=== PATIENT | male | born 1960 ===

== ENCOUNTER 2018-02-19 19:15 | Inpatient (IN) | payer OTHER ==
[2018-02-19] MEDS ORDERED: Sodium Chloride 0.9% 1,000 ML IV ONE (19:38)
[2018-02-19] MEDS ORDERED: cefTRIAXone IV 1 gm in Dextros 50 ML IVPB ONE (20:30)
--- NOTE | 2018-02-19 20:34 | C.PDOC ---
History Of Present Illness 58 y/o male presents to the ED with 2 weeks of dysuria and urinary frequency. Also reports fevers at home. Patient was seen by PMD Dr. Venegas 2 days ago, and started on Cipro and Flomax without improvmeent. Today he noticed blood in his urine, prompting him to come in for further evaluation. Otherwise he denies any abdominal pain, nausea, vomiting, diarrhea, back pain, or flank pain. Time Seen by Provider: 02/19/18 19:32 Chief Complaint (Nursing): Male Genitourinary History Per: Patient History/Exam Limitations: no limitations Onset/Duration Of Symptoms: Days Current Symptoms Are (Timing): Still Present Past Medical History Reviewed: Historical Data, Nursing Documentation, Vital Signs Vital Signs: Last Vital Signs Temp 100.1 F H 02/19/18 19:34 Pulse 119 H 02/19/18 19:34 Resp 20 02/19/18 19:34 BP 138/90 02/19/18 19:34 Pulse Ox 99 02/19/18 20:34 Other Surgeries: Left leg surgery Family History: States: No Known Family Hx - Social History Hx Alcohol Use: No Hx Substance Use: No - Immunization History Hx Tetanus Toxoid Vaccination: No Hx Influenza Vaccination: No Hx Pneumococcal Vaccination: No Review Of Systems Except As Marked, All Systems Reviewed And Found Negative. Constitutional: Positive for: Fever Genitourinary: Positive for: Dysuria, Frequency, Hematuria Physical Exam - Physical Exam Appears: Non-toxic, No Acute Distress Skin: Normal Color, Warm, Dry Head: Atraumatic, Normacephalic Eye(s): bilateral: Normal Inspection, PERRL, EOMI Nose: Normal Oral Mucosa: Moist Neck: Normal ROM, Supple Chest: Symmetrical Cardiovascular: Rhythm Regular, No Murmur Respiratory: Normal Breath Sounds, No Rales, No Rhonchi, No Wheezing Gastrointestinal/Abdominal: Soft, No Tenderness, No Guarding, No Rebound Back: Normal Inspection, No CVA Tenderness, No Vertebral Tenderness Extremity: Bilateral: Atraumatic, Normal Color And Temperature, Normal ROM Pulses: Left Dorsalis Pedis: Normal, Right Dorsalis Pedis: Normal Neurological/Psych: Oriented x3, Normal Speech, Other (No focal deficits) ED Course And Treatment - Laboratory Results Result Diagrams: 02/19/18 21:00 02/19/18 21:00 O2 Sat by Pulse Oximetry: 99 (RA) Pulse Ox Interpretation: Normal Medical Decision Making Medical Decision Making: Initial Impression: Complex UTI Initial Plan: --CMP --CBC --Lipase --UA --Urine culture --Blood culture --Chest x-ray --IV fluids --IV Rocephin --Tylenol 975 mg PO Disposition Discussed With DrArtem: Markos Venegas Doctor Will See Patient In The: Hospital Counseled Patient/Family Regarding: Studies Performed, Diagnosis - Disposition Disposition: HOSPITALIZED Disposition Time: 21:54 Condition: FAIR Forms: [facility] (Hebrew) - Clinical Impression Clinical Impression: Urinary tract infection with fever - Scribe Statement The provider has reviewed the documentation as recorded by the Kaylan Arthur Provider Attestation: All medical record entries made by the Kaylan were at my direction and personally dictated by me. I have reviewed the chart and agree that the record accurately reflects my personal performance of the history, physical exam, medical decision making, and the department course for this patient. I have also personally directed, reviewed, and agree with the discharge instructions and disposition.
[2018-02-19 21:03] LABS: BASO % 0.1 % (0.0-2.0); EOS % 0.1 % (0.0-4.0); HEMOGLOBIN 13.4 g/dL (12.0-18.0); LYMPH # 0.9 K/uL (1.0-4.3); LYMPH % 7.4 % (20.0-40.0); MEAN CELL VOLUME 80.5 fL (80.0-94.0); MEAN CORPUSCULAR HEMOGLOBIN 27.8 pg (27.0-31.0); MEAN CORPUSCULAR HGB CONC 34.6 g/dL (33.0-37.0); MEAN PLATELET VOLUME 8.5 fL (7.2-11.7); MONO # 0.8 K/uL (0.0-0.8); MONO % 6.5 % (0.0-10.0); NEUT # 10.6 K/uL (1.8-7.0); NEUT % 85.9 % (50.0-75.0); PLATELET COUNT 135 K/uL (130-400); RBC 4.82 Mil/uL (4.40-5.90); RED CELL DISTRIBUTION WIDTH 13.6 % (11.5-14.5); WHITE BLOOD COUNT 12.3 K/uL (4.8-10.8)
[2018-02-19 21:21] LABS: ALB/GLOB RATIO 1.1 (1.0-2.1); CALCIUM 8.9 mg/dl (8.6-10.4); GFR AFRICAN-AMERICAN > 60; GFR NON-AFRICAN AMERICAN > 60; LIPASE 23 U/L (23-300)
[2018-02-19 21:22] LABS: ALT/SGPT 16 U/L (21-72); AST/SGOT 25 U/L (17-59); BLOOD UREA NITROGEN 15 mg/dL (9-20)
[2018-02-19 21:28] LABS: SQUAMOUS EPITHIAL 1 /hpf (0-5); URINE BILIRUBIN NEGATIVE (NEGATIVE); URINE BLOOD 2+ (NEGATIVE); URINE CLARITY Hazy (Clear); URINE COLOR Yellow (YELLOW); URINE GLUCOSE (UA) NORMAL (Normal); URINE LEUKOCYTE ESTERASE 1+ Leu/uL (Negative); URINE PROTEIN 1+ mg/dL (NEGATIVE); URINE UROBILINOGEN NORMAL mg/dL (0.2-1.0)
[2018-02-19 21:34] LABS: LARGE PLATELETS PRESENT; LYMPHOCYTE 9 % (20-40); MONOCYTE 4 % (0-10); NEUTROPHIL 87 % (50-75); PLATELET ESTIMATE SLIGHTLY DECREASED (NORMAL); TOTAL CELLS COUNTED 100
--- NOTE | 2018-02-19 23:21 | CT ---
EXAM: CT Abdomen and Pelvis Without Intravenous Contrast EXAM DATE/TIME: 02/19/2018 9:53 PM CLINICAL HISTORY: 58 years old, male; Signs and symptoms; Fever and other: Hematuria/burning urination; Additional info: Abd. Pain TECHNIQUE: Axial computed tomography images of the abdomen and pelvis without intravenous contrast. All CT scans at this facility use one or more dose reduction techniques, viz.: automated exposure control; ma/kV adjustment per patient size (including targeted exams where dose is matched to indication; i.e. head); or iterative reconstruction technique. Coronal and sagittal reformatted images were created and reviewed. COMPARISON: No relevant prior studies available. FINDINGS: There are 2 round hypoattenuating hepatic lesions the larger measuring 3 cm in diameter probable cysts. The gallbladder, spleen, and pancreas appear grossly normal on this non-contrast study. There is bilateral perinephric stranding. No hydronephrosis. No obstructing calculi. The bowel appears grossly normal. A normal appendix is identified axial images 118 through 136. The prostate is enlarged and contains calcification. IMPRESSION: Enlarged prostate. Recommend correlation with PSA level.
[2018-02-20] MEDS ORDERED: Pneumococcal 23-Valent Vaccine IM ONE (01:34)
[2018-02-20] MEDS ORDERED: Oxycodone/Acetaminophen 5/325 mg Tab PO ONE (04:56)
--- NOTE | 2018-02-20 08:16 | RAD ---
Chest x-ray two views History: Chest pain. Comparison: None available. Findings: Biapical pleural thickening with upper lobe granulomatous changes. Patchy increased markings at the left lung base. Mild venous congestion. Tortuous aorta. Mild cardiomegaly. Degenerative changes in the spine with paravertebral osteophytes. Impression Biapical pleural thickening with upper lobe granulomatous changes. Patchy increased markings at the left lung base. Mild venous congestion. Tortuous aorta. Mild cardiomegaly.
--- NOTE | 2018-02-20 11:22 | CP.PCM.HP ---
History of Present Illness - History of Present Illness History of Present Illness: CC: fever HPI: 58 y/o male c/o urinaty discomfort, fever and blood in urine few days. Took Cipro no improvement. Present on Admission - Present on Admission Any Indicators Present on Admission: Yes History of DVT/PE: No History of Uncontrolled Diabetes: No Urinary Catheter: No Decubitus Ulcer Present: No Review of Systems - Review of Systems All systems: reviewed and no additional remarkable complaints except (fever, chronic leg pain, lumbar stenosis, weakness) Past Patient History - Past Medical History & Family History Past Medical History?: Yes - Past Social History Smoking Status: Former Smoker - CARDIAC Hx Cardiac Disorders: Yes Hx Hypertension: Yes - PULMONARY Hx Respiratory Disorders: No - NEUROLOGICAL Hx Neurological Disorder: No - HEENT Hx HEENT Problems: Yes Other/Comment: wears glasses to see far away uses glasses - ENDOCRINE/METABOLIC Hx Endocrine Disorders: No - HEMATOLOGICAL/ONCOLOGICAL Hx Blood Disorders: No - INTEGUMENTARY Hx Dermatological Problems: No - MUSCULOSKELETAL/RHEUMATOLOGICAL Hx Musculoskeletal Disorders: No Hx Falls: Yes - GASTROINTESTINAL Hx Gastrointestinal Disorders: No - GENITOURINARY/GYNECOLOGICAL Hx Genitourinary Disorders: Yes Hx Urinary Tract Infection: Yes Other/Comment: 2003 had tube for urine 09/20/2 months - PSYCHIATRIC Hx Psychophysiologic Disorder: No Hx Substance Use: No - SURGICAL HISTORY Hx Surgeries: Yes Hx Orthopedic Surgery: Yes (left lower leg screws) - ANESTHESIA Hx Anesthesia: Yes Hx Anesthesia Reactions: No Hx Malignant Hyperthermia: No Has any member of the family had a problem w/ anesthesia?: No Meds Allergies/Adverse Reactions: Allergies Allergy/AdvReac Type Severity Reaction Status Date / Time No Known Allergies Allergy Unverified 02/19/18 19:34 Physical Exam - Constitutional Appears: Non-toxic - Head Exam Head Exam: NORMAL INSPECTION - Eye Exam Eye Exam: Normal appearance - ENT Exam ENT Exam: Normal Exam - Neck Exam Neck exam: Positive for: Normal Inspection - Respiratory Exam Respiratory Exam: NORMAL BREATHING PATTERN - Cardiovascular Exam Cardiovascular Exam: REGULAR RHYTHM - GI/Abdominal Exam GI & Abdominal Exam: Normal Bowel Sounds - Rectal Exam Rectal Exam: Deferred - Exam External exam: NORMAL EXTERNAL EXAM - Back Exam Back exam: CVA tenderness (R) - Neurological Exam Neurological exam: Alert - Skin Skin Exam: Normal Color Results - Vital Signs Recent Vital Signs: Last Vital Signs Temp 98.4 F 02/20/18 08:54 Pulse 89 02/20/18 08:54 Resp 20 02/20/18 08:54 BP 127/85 02/20/18 08:54 Pulse Ox 96 02/20/18 08:54 - Labs Result Diagrams: 02/19/18 21:00 02/19/18 21:00 Labs: Laboratory Results - last 24 hr 02/19/18 02/19/18 02/19/18 21:00 21:00 21:12 WBC 12.3 H RBC 4.82 Hgb 13.4 Hct 38.8 MCV 80.5 MCH 27.8 MCHC 34.6 RDW 13.6 Plt Count 135 MPV 8.5 Neut % (Auto) 85.9 H Lymph % (Auto) 7.4 L [place] % (Auto) 6.5 Eos % (Auto) 0.1 Baso % (Auto) 0.1 Neut # (Auto) 10.6 H Lymph # (Auto) 0.9 L [place] # (Auto) 0.8 Eos # (Auto) 0.0 Baso # (Auto) 0.0 Neutrophils % (Manual) 87 H Lymphocytes % (Manual) 9 L Monocytes % (Manual) 4 Platelet Estimate Slightly decreased L Large Platelets Present Sodium 141 Potassium 3.8 Chloride 103 Carbon Dioxide 24 Anion Gap 18 BUN 15 Creatinine 0.9 Est GFR ( Amer) > 60 Est GFR (Non-Af Amer) > 60 Random Glucose 119 H Calcium 8.9 Total Bilirubin 1.0 AST 25 ALT 16 L Alkaline Phosphatase 74 Total Protein 7.7 Albumin 4.0 Globulin 3.7 Albumin/Globulin Ratio 1.1 Lipase 23 Urine Color Yellow Urine Clarity Hazy Urine pH 6.0 Ur Specific [place] 1.018 Urine Protein 1+ H Urine Glucose (UA) Normal Urine Ketones Negative Urine Blood 2+ H Urine Nitrate Negative Urine Bilirubin Negative Urine Urobilinogen Normal Ur Leukocyte Esterase 1+ H Urine WBC (Auto) 20 H Urine RBC (Auto) 95 H Ur Squamous Epith Cells 1 Assessment & Plan (1) Urinary tract infection with fever Status: Acute (2) Lumbar radiculopathy Status: Chronic (3) HTN (hypertension) Status: Chronic - Assessment and Plan (Free Text) Assessment: A/p: IV antibiotic. Urology consult - Date & Time Date: 02/20/18 Time: 11:26
[2018-02-20] MEDS ORDERED: cefTRIAXone 2 GM in Sodium Chloride 0.9% 100 ML IVPB SCH (14:00)
--- NOTE | 2018-02-20 16:40 | CP.PCM.CON ---
History of Present Illness - History of Present Illness History of Present Illness: 58 y/o male presents to the ED with 2 weeks of dysuria and urinary frequency. Also reports fevers at home. Patient was seen by PMD Dr. Venegas 2 days ago, and started on Cipro and Flomax without improvmeent. Today he noticed blood in his urine, prompting him to come in for further evaluation. Otherwise he denies any abdominal pain, nausea, vomiting, diarrhea, back pain, or flank pain. C/O burning on urination , pain and fever PMH- spinal stenosis as per PMD cysto and stent placed 2004 ? denies htn dm cad Other Surgeries: Left leg surgery Family History: States: No Known Family Hx Review of Systems - Review of Systems All systems: reviewed and no additional remarkable complaints except - Constitutional Constitutional: As Per HPI, Chills, Fever - EENT Eyes: absent: As Per HPI, Blind Spots, Blurred Vision, Change in Vision, Decreased Night Vision, Diplopia, Discharge, Dry Eye, Exophthalmos, Floaters, Irritation, Itchy Eyes, Loss of Peripheral Vision, Pain, Photophobia, Requires Corrective Lenses, Sees Flashes, Spots in Vision, Tunnel Vision, Other Visual Disturbances, Loss of Vision, Other Ears: absent: As Per HPI, Decreased Hearing, Ear Discharge, Ear Pain, Tinnitus, Abnormal Hearing, Disequilibrium, Dizziness, Other Nose/Mouth/Throat: absent: As Per HPI, Epistaxis, Nasal Congestion, Nasal Discharge, Nasal Obstruction, Nasal Trauma, Nose Pain, Post Nasal Drip, Sinus Pain, Sinus Pressure, Bleeding Gums, Change in Voice, Dental Pain, Dry Mouth, Dysphagia, Halitosis, Hoarsness, Lip Swelling, Mouth Lesions, Mouth Pain, Odynophagia, Sore Throat, Throat Swelling, Tongue Swelling, Facial Pain, Neck Pain, Neck Mass, Other - Cardiovascular Cardiovascular: absent: As Per HPI, Acrocyanosis, Chest Pain, Chest Pain at Rest , Chest Pain with Activity, Claudication, Diaphoresis, Dyspnea, Dyspnea on Exertion, Edema, Irregular Heart Rhythm, Pain Radiating to Arm/Neck/Jaw, Leg Edema, Leg Ulcers, Lightheadedness, Orthopnea, Palpitations, Paroxysmal Nocturnal Dyspnea, Pedal Edema, Radiating Pain, Rapid Heart Rate, Slow Heart Rate, Syncope, Other - Respiratory Respiratory: absent: As Per HPI, Cough, Dyspnea, Hemoptysis, Dyspnea on Exertion , Wheezing, Snoring, Stridor, Pain on Inspiration, Chest Congestion, Excessive Mucous Production, Change in Mucous Color, Pain with Coughing, Other - Gastrointestinal Gastrointestinal: absent: As Per HPI, Abdominal Pain, Belching, Bloating, Change in Bowel Habits, Change in Stool Character, Coffee Ground Emesis, Constipation, Cramping, Diarrhea, Dyspepsia, Dysphagia, Early Satiety, Excessive Flatus, Fecal Incontinence, Heartburn, Hematemesis, Hematochezia, Loose Stools, Melena, Nausea, Odynophagia, Temesmus, Vomiting, Other - Genitourinary Genitourinary: As Per HPI, Change in Urinary Stream, Difficulty Urinating, Dysuria, Hematuria, Urinary Frequency, Urinary Hesitance, Urinary Urgency - Musculoskeletal Musculoskeletal: absent: As Per HPI, Abnormal Gait, Arthralgias, Atrophy, Back Pain, Deformity, Joint Swelling, Limited Range of Motion, Loss of Height, Muscle Cramps, Muscle Weakness, Myalgias, Neck Pain, Numbness, Radiating Pain into Limb, Stiffness, Tingling, Other - Integumentary Integumentary: absent: As Per HPI, Acne, Alopecia, Bleeding Lesions, Change in Hair, Change in Nails, Change in Pigmentation, Changing Lesions, Dry Skin, Erythema, Furuncle, Hirsutism, Lesions, New Lesions, Non-Healing Lesions, Photosensitivity, Pruritus, Rash, Skin Pain, Skin Ulcer, Sores, Striae, Swelling , Unusual Bruising, Wounds, Jaundice, Other - Neurological Neurological: absent: As Per HPI, Abnormal Gait, Abnormal Hearing, Abnormal Movements, Abnormal Speech, Behavioral Changes, Burning Sensations, Confusion, Convulsions, Disequilibrium, Dizziness, Numbness, Focal Weakness, Frequent Falls , Headaches, Lack of Coordination, Loss of Vision, Memory Loss, Paresthesias, Radicular Pain, Restless Legs, Sensory Deficit, Syncope, Tingling, Tremor, Vertigo, Weakness, Other Visual Disturbances, Other - Psychiatric Psychiatric: absent: As Per HPI, Abnormal Sleep Pattern, Anhedonia, Anxiety, Auditory Hallucinations, Behavioral Changes, Change in Appetite, Change in Libido, Confusion, Depression, Difficulty Concentrating, Hallucinations, Homicidal Ideation, Hopelessness, Irritability, Memory Loss, Mood Swings, Panic Attacks, Paranoia, Suicidal Ideation, Visual Hallucinations, Tactile Hallucinations, Other - Endocrine Endocrine: absent: As Per HPI, Change in Body Appearance, Change in Libido, Cold Intolorance, Deepening of Voice, Excessive Sweating, Fatigue, Flushing, Heat Intolorance, Increase in Ring/Shoe/Hat Size, Palpitations, Polydipsia, Polyphagia, Polyuria, Other - Hematologic/Lymphatic Hematologic: absent: As Per HPI, Easy Bleeding, Easy Bruising, Lymphadenopathy, Other Past Patient History - Past Medical History & Family History Past Medical History?: Yes - Past Social History Smoking Status: Former Smoker - CARDIAC Hx Cardiac Disorders: Yes Hx Hypertension: Yes - PULMONARY Hx Respiratory Disorders: No - NEUROLOGICAL Hx Neurological Disorder: No - HEENT Hx HEENT Problems: Yes Other/Comment: wears glasses to see far away uses glasses - ENDOCRINE/METABOLIC Hx Endocrine Disorders: No - HEMATOLOGICAL/ONCOLOGICAL Hx Blood Disorders: No - INTEGUMENTARY Hx Dermatological Problems: No - MUSCULOSKELETAL/RHEUMATOLOGICAL Hx Musculoskeletal Disorders: No Hx Falls: Yes - GASTROINTESTINAL Hx Gastrointestinal Disorders: No - GENITOURINARY/GYNECOLOGICAL Hx Genitourinary Disorders: Yes Hx Urinary Tract Infection: Yes Other/Comment: 2003 had tube for urine 1/2 months - PSYCHIATRIC Hx Psychophysiologic Disorder: No Hx Substance Use: No - SURGICAL HISTORY Hx Surgeries: Yes Hx Orthopedic Surgery: Yes (left lower leg screws) - ANESTHESIA Hx Anesthesia: Yes Hx Anesthesia Reactions: No Hx Malignant Hyperthermia: No Has any member of the family had a problem w/ anesthesia?: No Meds Allergies/Adverse Reactions: Allergies Allergy/AdvReac Type Severity Reaction Status Date / Time No Known Allergies Allergy Unverified 02/19/18 19:34 - Medications Medications: Current Medications Acetaminophen (Tylenol 325mg Tab) 650 mg PO Q6 PRN PRN Reason: Fever >100.4 F Heparin Sodium (Porcine) (Heparin) 5,000 units IV Q12 [facility]AK Ceftriaxone Sodium 2 gm/ (Sodium Chloride) 100 mls @ 100 mls/hr IVPB Q24H [facility]AK PRN Reason: Protocol Last Admin: 02/20/18 14:15 Dose: 100 mls/hr Losartan Potassium (Cozaar) 100 mg PO DAILY [facility] Last Admin: 02/20/18 09:30 Dose: 100 mg Oxycodone/Acetaminophen (Percocet 5/325 Mg Tab) 1 tab PO Q4H PRN PRN Reason: Pain, moderate (4-7) Stop: 02/23/18 11:28 Physical Exam - Constitutional Appears: Non-toxic, Chronically Ill - Head Exam Head Exam: NORMOCEPHALIC - Eye Exam Eye Exam: PERRL. absent: Scleral icterus - ENT Exam ENT Exam: Mucous Membranes Dry, Normal External Ear Exam - Neck Exam Neck exam: Negative for: Lymphadenopathy - Respiratory Exam Respiratory Exam: Decreased Breath Sounds, Clear to Auscultation Bilateral - Cardiovascular Exam Cardiovascular Exam: REGULAR RHYTHM, +S1, +S2 - GI/Abdominal Exam GI & Abdominal Exam: Diminished Bowel Sounds, Soft. absent: Tenderness - Rectal Exam Rectal Exam: Deferred - Exam Exam: NORMAL INSPECTION - Extremities Exam Extremities exam: Negative for: pedal edema - Back Exam Back exam: absent: CVA tenderness (L), CVA tenderness (R) - Neurological Exam Neurological exam: Alert, CN II-XII Intact, Oriented x3, Reflexes Normal - Psychiatric Exam Psychiatric exam: Normal Mood - Skin Skin Exam: Dry, Intact Results - Vital Signs Recent Vital Signs: Last Vital Signs Temp 98.3 F 02/20/18 13:39 Pulse 89 02/20/18 08:54 Resp 20 02/20/18 08:54 BP 127/85 02/20/18 08:54 Pulse Ox 96 02/20/18 08:54 - Labs Result Diagrams: 02/19/18 21:00 02/19/18 21:00 Labs: Laboratory Results - last 24 hr 02/19/18 02/19/18 02/19/18 21:00 21:00 21:12 WBC 12.3 H RBC 4.82 Hgb 13.4 Hct 38.8 MCV 80.5 MCH 27.8 MCHC 34.6 RDW 13.6 Plt Count 135 MPV 8.5 Neut % (Auto) 85.9 H Lymph % (Auto) 7.4 L [place] % (Auto) 6.5 Eos % (Auto) 0.1 Baso % (Auto) 0.1 Neut # (Auto) 10.6 H Lymph # (Auto) 0.9 L [place] # (Auto) 0.8 Eos # (Auto) 0.0 Baso # (Auto) 0.0 Neutrophils % (Manual) 87 H Lymphocytes % (Manual) 9 L Monocytes % (Manual) 4 Platelet Estimate Slightly decreased L Large Platelets Present APTT Sodium 141 Potassium 3.8 Chloride 103 Carbon Dioxide 24 Anion Gap 18 BUN 15 Creatinine 0.9 Est GFR ( Amer) > 60 Est GFR (Non-Af Amer) > 60 Random Glucose 119 H Calcium 8.9 Total Bilirubin 1.0 AST 25 ALT 16 L Alkaline Phosphatase 74 Total Protein 7.7 Albumin 4.0 Globulin 3.7 Albumin/Globulin Ratio 1.1 Lipase 23 Urine Color Yellow Urine Clarity Hazy Urine pH 6.0 Ur Specific [place] 1.018 Urine Protein 1+ H Urine Glucose (UA) Normal Urine Ketones Negative Urine Blood 2+ H Urine Nitrate Negative Urine Bilirubin Negative Urine Urobilinogen Normal Ur Leukocyte Esterase 1+ H Urine WBC (Auto) 20 H Urine RBC (Auto) 95 H Ur Squamous Epith Cells 1 02/20/18 13:57 WBC RBC Hgb Hct MCV MCH MCHC RDW Plt Count MPV Neut % (Auto) Lymph % (Auto) [place] % (Auto) Eos % (Auto) Baso % (Auto) Neut # (Auto) Lymph # (Auto) [place] # (Auto) Eos # (Auto) Baso # (Auto) Neutrophils % (Manual) Lymphocytes % (Manual) Monocytes % (Manual) Platelet Estimate Large Platelets APTT 50 H Sodium Potassium Chloride Carbon Dioxide Anion Gap BUN Creatinine Est GFR ( Amer) Est GFR (Non-Af Amer) Random Glucose Calcium Total Bilirubin AST ALT Alkaline Phosphatase Total Protein Albumin Globulin Albumin/Globulin Ratio Lipase Urine Color Urine Clarity Urine pH Ur Specific [place] Urine Protein Urine Glucose (UA) Urine Ketones Urine Blood Urine Nitrate Urine Bilirubin Urine Urobilinogen Ur Leukocyte Esterase Urine WBC (Auto) Urine RBC (Auto) Ur Squamous Epith Cells Assessment & Plan (1) Hematuria Status: Acute (2) Prostatic disease Status: Acute (3) Prostatic disease Status: Acute (4) Urinary tract infection with fever Status: Acute (5) HTN (hypertension) Status: Chronic (6) Lumbar radiculopathy Status: Chronic - Assessment and Plan (Free Text) Assessment: will rx with IV antibiotics, check PSA level will need eval for possible cysto in view of hematuria duration of IV anibiotics to be determined
[2018-02-20] MEDS: Oxycodone/Acetaminophen 5/325 mg Tab PO PRN (16:59)
[2018-02-20] MEDS: Cefepime IV 1 gm in Dextrose 1 GM/50 ML BAG IVPB SCH (18:35)
[2018-02-21] MEDS: Oxycodone/Acetaminophen 5/325 mg Tab PO PRN ×2 (06:49→17:52)
[2018-02-21] MEDS: Cefepime IV 1 gm in Dextrose 1 GM/50 ML BAG IVPB SCH ×2 (06:49→17:40)
[2018-02-21 07:27] LABS: BASO % 0.4 % (0.0-2.0); EOS % 0.4 % (0.0-4.0); HEMOGLOBIN 13.4 g/dL (12.0-18.0); LYMPH # 0.9 K/uL (1.0-4.3); MEAN CELL VOLUME 80.7 fL (80.0-94.0); MEAN CORPUSCULAR HEMOGLOBIN 28.1 pg (27.0-31.0); MEAN CORPUSCULAR HGB CONC 34.8 g/dL (33.0-37.0); MEAN PLATELET VOLUME 8.4 fL (7.2-11.7); MONO # 0.5 K/uL (0.0-0.8); MONO % 7.4 % (0.0-10.0); NEUT # 4.8 K/uL (1.8-7.0); NEUT % 77.8 % (50.0-75.0); RBC 4.76 Mil/uL (4.40-5.90); RED CELL DISTRIBUTION WIDTH 13.3 % (11.5-14.5); WHITE BLOOD COUNT 6.1 K/uL (4.8-10.8)
[2018-02-21 07:36] LABS: ALB/GLOB RATIO 1.1 (1.0-2.1); ALBUMIN 3.6 g/dL (3.5-5.0); ALT/SGPT 15 U/L (21-72); AST/SGOT 20 U/L (17-59); BLOOD UREA NITROGEN 11 mg/dL (9-20); CALCIUM 8.8 mg/dl (8.6-10.4); GFR AFRICAN-AMERICAN > 60; GFR NON-AFRICAN AMERICAN > 60
--- NOTE | 2018-02-21 09:33 | CP.PCM.PN ---
Subjective - Date & Time of Evaluation Date of Evaluation: 02/21/18 Time of Evaluation: 08:22 - Subjective Subjective: Pt feels well, no more fever and now feels urinating well. No longer incontinent; no n/v, no cough, no CP, no SOB, no diarrhea Objective - Vital Signs/Intake and Output Vital Signs (last 24 hours): Temp Pulse Resp BP Pulse Ox 99.2 F 85 20 126/81 98 02/20/18 23:30 02/20/18 23:30 02/20/18 23:30 02/20/18 23:30 02/20/18 23:30 Intake and Output: 02/21/18 02/21/18 06:59 18:59 Intake Total 290 Balance 290 - Medications Medications: Current Medications Acetaminophen (Tylenol 325mg Tab) 650 mg PO Q6 PRN PRN Reason: Fever >100.4 F Heparin Sodium (Porcine) (Heparin) 5,000 units SC Q12 ZAK Cefepime HCl (Maxipime Iv 1 Gm Premix) 1 gm in 50 mls @ 100 mls/hr IVPB Q12H ZAK PRN Reason: Protocol Last Admin: 02/21/18 06:49 Dose: 100 mls/hr Losartan Potassium (Cozaar) 100 mg PO DAILY [facility] Last Admin: 02/20/18 09:30 Dose: 100 mg Oxycodone/Acetaminophen (Percocet 5/325 Mg Tab) 1 tab PO Q4H PRN PRN Reason: Pain, moderate (4-7) Stop: 02/23/18 11:28 Last Admin: 02/21/18 06:49 Dose: 1 tab - Labs Labs: 02/21/18 07:16 02/21/18 07:16 APTT 50 SECONDS (21-34) H 02/20/18 13:57 - Constitutional Appears: No Acute Distress - Eye Exam Eye Exam: Normal appearance - ENT Exam ENT Exam: Mucous Membranes Moist - Neck Exam Neck Exam: Full ROM. absent: Meningismus, Normal Inspection - Respiratory Exam Respiratory Exam: Clear to Ausculation Bilateral. absent: Rales, Rhonchi, Wheezes, Respiratory Distress - Cardiovascular Exam Cardiovascular Exam: REGULAR RHYTHM, +S1, +S2. absent: Gallop, JVD, Murmur - GI/Abdominal Exam GI & Abdominal Exam: Soft. absent: Tenderness, Mass - Extremities Exam Extremities Exam: Full ROM. absent: Calf Tenderness, Joint Swelling, Normal Capillary Refill, Pedal Edema Assessment and Plan - Assessment and Plan (Free Text) Assessment: Sepsis ? 2 prostatis/ Inc PSA; Hypokalemia; HTN, Hyperlipidemia; Lumbar spinal stenosis Cont meds Await Urology eval
--- NOTE | 2018-02-21 10:31 | CP.PCM.PN ---
Subjective - Date & Time of Evaluation Date of Evaluation: 02/21/18 Time of Evaluation: 08:00 - Subjective Subjective: admitted with fever and hematuria await cultures and eval has large prostate ? liver cysts PSA pending Objective - Vital Signs/Intake and Output Vital Signs (last 24 hours): Temp Pulse Resp BP Pulse Ox 98.7 F 96 H 18 129/88 98 02/21/18 09:35 02/21/18 09:35 02/21/18 09:35 02/21/18 09:35 02/21/18 09:35 Intake and Output: 02/21/18 02/21/18 06:59 18:59 Intake Total 290 Balance 290 - Medications Medications: Current Medications Acetaminophen (Tylenol 325mg Tab) 650 mg PO Q6 PRN PRN Reason: Fever >100.4 F Heparin Sodium (Porcine) (Heparin) 5,000 units SC Q12 [facility] Last Admin: 02/21/18 10:18 Dose: Not Given Cefepime HCl (Maxipime Iv 1 Gm Premix) 1 gm in 50 mls @ 100 mls/hr IVPB Q12H ZAK PRN Reason: Protocol Last Admin: 02/21/18 06:49 Dose: 100 mls/hr Losartan Potassium (Cozaar) 100 mg PO DAILY [facility] Last Admin: 02/21/18 10:19 Dose: 100 mg Oxycodone/Acetaminophen (Percocet 5/325 Mg Tab) 1 tab PO Q4H PRN PRN Reason: Pain, moderate (4-7) Stop: 02/23/18 11:28 Last Admin: 02/21/18 06:49 Dose: 1 tab Potassium Chloride (K-Dur 20 Meq Er Tab) 40 meq PO BRK ONE Stop: 02/22/18 10:01 - Labs Labs: 02/21/18 07:16 02/21/18 07:16 APTT 50 SECONDS (21-34) H 02/20/18 13:57 - Constitutional Appears: Chronically Ill - Head Exam Head Exam: NORMAL INSPECTION - Eye Exam Eye Exam: absent: Scleral icterus - ENT Exam ENT Exam: Mucous Membranes Dry - Neck Exam Neck Exam: absent: Lymphadenopathy - Respiratory Exam Respiratory Exam: Decreased Breath Sounds - Cardiovascular Exam Cardiovascular Exam: REGULAR RHYTHM - GI/Abdominal Exam GI & Abdominal Exam: Distended - Rectal Exam Rectal Exam: Deferred - Exam Exam: NORMAL INSPECTION Assessment and Plan (1) Hematuria Status: Acute (2) Prostatic disease Status: Acute (3) Prostatic disease Status: Acute (4) Urinary tract infection with fever Status: Acute (5) HTN (hypertension) Status: Chronic (6) Lumbar radiculopathy Status: Chronic - Assessment and Plan (Free Text) Assessment: may need cysto
--- NOTE | 2018-02-21 17:04 | CP.PCM.PN ---
Subjective - Date & Time of Evaluation Date of Evaluation: 02/21/18 Time of Evaluation: 17:04 - Subjective Subjective: Pt last seen by our practice 19 years ago who claims to have Unknown Endoscopic procedure by Dr Cristian Murphy(Dr retired in 1994) admitted with gross hematuria. fever and chills at home for several days prior to admit outpaient antibiotics failed to improve voiding symptoms. He was admitted and placed om IV antibiotics and feels better. Ua shows many rbc and wbc,Urine C&s so far neg ( pt was on po antibiotics) wbc has dropped since admission. CT shows enlarged prostate and perinephic stranding consistant w pylo. A sepsis resistant to po antibiotics.Enlarged prostate Hematuria. Suggest continue antibiotics as per ID start flomax Pt will need cysto when he completes antibiotic treatment. May be schueled as opd. CRISTIAN Objective - Vital Signs/Intake and Output Vital Signs (last 24 hours): Temp Pulse Resp BP Pulse Ox 98.4 F 75 18 130/86 98 02/21/18 15:43 02/21/18 15:43 02/21/18 15:43 02/21/18 15:43 02/21/18 15:43 Intake and Output: 02/21/18 02/21/18 06:59 18:59 Intake Total 290 Balance 290 - Medications Medications: Current Medications Acetaminophen (Tylenol 325mg Tab) 650 mg PO Q6 PRN PRN Reason: Fever >100.4 F Heparin Sodium (Porcine) (Heparin) 5,000 units SC Q12 [facility] Last Admin: 02/21/18 10:18 Dose: Not Given Cefepime HCl (Maxipime Iv 1 Gm Premix) 1 gm in 50 mls @ 100 mls/hr IVPB Q12H [facility] PRN Reason: Protocol Last Admin: 02/21/18 06:49 Dose: 100 mls/hr Losartan Potassium (Cozaar) 100 mg PO DAILY [facility] Last Admin: 02/21/18 10:19 Dose: 100 mg Oxycodone/Acetaminophen (Percocet 5/325 Mg Tab) 1 tab PO Q4H PRN PRN Reason: Pain, moderate (4-7) Stop: 02/23/18 11:28 Last Admin: 02/21/18 06:49 Dose: 1 tab Potassium Chloride (K-Dur 20 Meq Er Tab) 40 meq PO BRK ONE Stop: 02/22/18 10:01 Tamsulosin HCl (Flomax) 0.4 mg PO DAILY [facility] - Labs Labs: 02/21/18 07:16 02/21/18 07:16 APTT 50 SECONDS (21-34) H 02/20/18 13:57
[2018-02-22 01:02] VITALS: RESP 20
[2018-02-22] MEDS: Cefepime IV 1 gm in Dextrose 1 GM/50 ML BAG IVPB SCH (06:33)
--- NOTE | 2018-02-22 08:10 | CP.PCM.PN ---
Subjective - Date & Time of Evaluation Date of Evaluation: 02/22/18 Time of Evaluation: 07:40 - Subjective Subjective: Pt feels well; good appetite, no CP, no SOB, no edema, no cough, no diarrhea, no n/v. No more on/off dysuria, (+) slight hesitancy but no more urgency and ? incontinent - "back to normal" Objective - Vital Signs/Intake and Output Vital Signs (last 24 hours): Temp Pulse Resp BP Pulse Ox 98.6 F 77 20 118/80 97 02/21/18 23:30 02/21/18 23:30 02/21/18 23:30 02/21/18 23:30 02/21/18 23:30 Intake and Output: 02/22/18 02/22/18 06:59 18:59 Output Total 200 Balance -200 - Medications Medications: Current Medications Acetaminophen (Tylenol 325mg Tab) 650 mg PO Q6 PRN PRN Reason: Fever >100.4 F Heparin Sodium (Porcine) (Heparin) 5,000 units SC Q12 [facility] Last Admin: 02/21/18 22:00 Dose: Not Given Cefepime HCl (Maxipime Iv 1 Gm Premix) 1 gm in 50 mls @ 100 mls/hr IVPB Q12H [facility] PRN Reason: Protocol Last Admin: 02/22/18 06:33 Dose: 100 mls/hr Losartan Potassium (Cozaar) 100 mg PO DAILY [facility] Last Admin: 02/21/18 10:19 Dose: 100 mg Oxycodone/Acetaminophen (Percocet 5/325 Mg Tab) 1 tab PO Q4H PRN PRN Reason: Pain, moderate (4-7) Stop: 02/23/18 11:28 Last Admin: 02/21/18 17:52 Dose: 1 tab Potassium Chloride (K-Dur 20 Meq Er Tab) 40 meq PO BRK ONE Stop: 02/22/18 10:01 Tamsulosin HCl (Flomax) 0.4 mg PO DAILY [facility] - Labs Labs: 02/21/18 07:16 02/21/18 07:16 APTT 50 SECONDS (21-34) H 02/20/18 13:57 - Constitutional Appears: No Acute Distress - Eye Exam Eye Exam: Normal appearance - ENT Exam ENT Exam: Mucous Membranes Moist. absent: Normal Exam, Normal External Ear Exam , Normal Oropharynx - Neck Exam Neck Exam: Full ROM. absent: Lymphadenopathy, Thyromegaly - Respiratory Exam Respiratory Exam: Decreased Breath Sounds. absent: Rales, Rhonchi, Wheezes - Cardiovascular Exam Cardiovascular Exam: REGULAR RHYTHM, +S1, +S2. absent: Gallop - GI/Abdominal Exam GI & Abdominal Exam: Soft. absent: Tenderness, Mass - Extremities Exam Extremities Exam: Full ROM, Normal Capillary Refill. absent: Calf Tenderness, Joint Swelling Assessment and Plan - Assessment and Plan (Free Text) Plan: Acute Pyelo/ Prostatitis HTN, hyperlipidemia Will discharge is clear x c/o ID For lab
[2018-02-22 08:32] VITALS: TEMP 98.4; O2SAT 95
[2018-02-22] MEDS: Oxycodone/Acetaminophen 5/325 mg Tab PO PRN (09:13)
[2018-02-22 09:15] VITALS: BP 140/87; PULSE 106
[2018-02-22] MEDS ORDERED: Potassium Chloride 20 mEq ER Tab PO ONE (10:00)
--- NOTE | 2018-02-22 10:58 | CP.PCM.PN ---
Subjective - Date & Time of Evaluation Date of Evaluation: 02/22/18 Time of Evaluation: 09:00 - Subjective Subjective: improving cultures so far neg Objective - Vital Signs/Intake and Output Vital Signs (last 24 hours): Temp Pulse Resp BP Pulse Ox 98.4 F 106 H 20 140/87 95 02/22/18 08:31 02/22/18 09:15 02/22/18 08:31 02/22/18 09:15 02/22/18 08:31 Intake and Output: 02/22/18 02/22/18 06:59 18:59 Output Total 200 Balance -200 - Medications Medications: Current Medications Acetaminophen (Tylenol 325mg Tab) 650 mg PO Q6 PRN PRN Reason: Fever >100.4 F Heparin Sodium (Porcine) (Heparin) 5,000 units SC Q12 [facility] Last Admin: 02/22/18 09:13 Dose: Not Given Cefepime HCl (Maxipime Iv 1 Gm Premix) 1 gm in 50 mls @ 100 mls/hr IVPB Q12H [facility] PRN Reason: Protocol Last Admin: 02/22/18 06:33 Dose: 100 mls/hr Losartan Potassium (Cozaar) 100 mg PO DAILY [facility] Last Admin: 02/22/18 09:13 Dose: 100 mg Oxycodone/Acetaminophen (Percocet 5/325 Mg Tab) 1 tab PO Q4H PRN PRN Reason: Pain, moderate (4-7) Stop: 02/23/18 11:28 Last Admin: 02/22/18 09:13 Dose: 1 tab Tamsulosin HCl (Flomax) 0.4 mg PO DAILY [facility] Last Admin: 02/22/18 09:13 Dose: 0.4 mg - Labs Labs: 02/21/18 07:16 02/21/18 07:16 APTT 50 SECONDS (21-34) H 02/20/18 13:57 - Constitutional Appears: Non-toxic - Head Exam Head Exam: NORMOCEPHALIC - Eye Exam Eye Exam: PERRL - ENT Exam ENT Exam: Mucous Membranes Dry - Neck Exam Neck Exam: absent: Lymphadenopathy - Respiratory Exam Respiratory Exam: Decreased Breath Sounds - Cardiovascular Exam Cardiovascular Exam: REGULAR RHYTHM - GI/Abdominal Exam GI & Abdominal Exam: Distended, Soft - Rectal Exam Rectal Exam: Deferred - Exam Exam: NORMAL INSPECTION Assessment and Plan (1) Hematuria Status: Acute (2) Prostatic disease Status: Acute (3) Prostatic disease Status: Acute (4) Urinary tract infection with fever Status: Acute (5) HTN (hypertension) Status: Chronic (6) Lumbar radiculopathy Status: Chronic
[2018-02-22 11:56] LABS: ALB/GLOB RATIO 1.1 (1.0-2.1); ALBUMIN 3.8 g/dL (3.5-5.0); ALT/SGPT 32 U/L (21-72); AST/SGOT 33 U/L (17-59); BLOOD UREA NITROGEN 12 mg/dL (9-20); CALCIUM 9.1 mg/dl (8.6-10.4); GFR AFRICAN-AMERICAN > 60; GFR NON-AFRICAN AMERICAN > 60
== END 2018-02-22 12:54 | disposition home or self-care (01) | DRG 690 ==
LOC: C.ER 19:15 → C.9E 21:53 → C.6T 22:39
PROVIDERS: ADMIT Internal Medicine; ATTEND Internal Medicine
DX: N10 Acute pyelonephritis (principal); E78.5 Hyperlipidemia, unspecified; E87.6 Hypokalemia; I10 Essential (primary) hypertension; K76.89 Other specified diseases of liver; R31.9 Hematuria, unspecified; M48.061 Spinal stenosis, lumbar region without neurogenic claudication; N40.1 Benign prostatic hyperplasia with lower urinary tract symptoms; R35.0 Frequency of micturition; Z87.891 Personal history of nicotine dependence